=== PATIENT | female | born 1980 ===

== ENCOUNTER 2018-09-19 11:38 | Emergency (ER) | payer MEDICAID ==
[2018-09-19 11:39] VITALS: BMI 32.2
[2018-09-19] MEDS ORDERED: Sodium Chloride 0.9% 1,000 ML IV STA (11:56)
--- NOTE | 2018-09-19 12:09 | ED PDOC ---
Arrival/HPI - General Time Seen by Provider: 09/19/18 12:00 Historian: Patient - History of Present Illness Narrative History of Present Illness (Text): 09/19/18 12:01 37 y/o female, no significant pmh, nkda, c/o feeling room spinning sensation/headache/nausea at work today. Pt. feels like whole room spinning, feels nausea, admits headache, no chest pain or shortness of breath, no night sweat, no numbness or tingling, no palpitation, no rash, no other medical or psychological complaints. Past Medical History - Provider Review Nursing Documentation Reviewed: Yes - Psychiatric Hx Substance Use: No - Surgical History Hx Section: Yes (x2) - Anesthesia Hx Anesthesia: Yes Hx Anesthesia Reactions: No Hx Malignant Hyperthermia: No - Suicidal Assessment Feels Threatened In Home Enviroment: No Family/Social History - Physician Review Nursing Documentation Reviewed: Yes Family/Social History: Unknown Family HX Smoking Status: Never Smoked Hx Alcohol Use: No Hx Substance Use: No Allergies/Home Meds Allergies/Adverse Reactions: Allergies No Known Allergies Allergy (Verified 07/03/16 20:00) Review of Systems - Review of Systems Constitutional: absent: Fatigue, Fevers Eyes: absent: Vision Changes ENT: absent: Hearing Changes Respiratory: absent: SOB, Cough Cardiovascular: absent: Chest Pain Gastrointestinal: Nausea. absent: Abdominal Pain, Diarrhea, Vomiting Skin: absent: Rash, Pruritis Neurological: Headache, Dizziness Psychiatric: absent: Anxiety, Depression, Suicidal Ideation Physical Exam Vital Signs Reviewed: Yes Temperature: Afebrile Blood Pressure: Normal Pulse: Regular Respiratory Rate: Normal Appearance: Positive for: Well-Appearing, Non-Toxic, Comfortable Pain Distress: Moderate Mental Status: Positive for: Alert and Oriented X 3 - Systems Exam Head: Present: Atraumatic, Normocephalic Pupils: Present: PERRL Extroacular Muscles: Present: EOMI Conjunctiva: Present: Normal Ears: Present: NORMAL TM, Normal Canal. No: Erythema Mouth: Present: Moist Mucous Membranes Pharnyx: No: ERYTHEMA, EXUDATE, TONSILS ENLARGED Nose (External): Present: Atraumatic. No: Abrasion, Contusion, Laceration Nose (Internal): Present: Normal Inspection, No Active Bleeding. No: Rhinorrhea, Septal Hematoma, Epistaxis Neck: Present: Normal Range of Motion, Trachea Midline. No: Meningeal Signs, MIDLINE TENDERNESS, Lymphadenopathy Respiratory/Chest: Present: Clear to Auscultation, Good Air Exchange. No: Respiratory Distress, Accessory Muscle Use Cardiovascular: Present: Regular Rate and Rhythm, Normal S1, S2. No: Murmurs Abdomen: No: Tenderness, Distention, Peritoneal Signs, Rebound, Guarding Back: Present: Normal Inspection. No: CVA Tenderness, Midline Tenderness, Paraspinal Tenderness, Pain with Leg Raise, Decubitus Ulcer Upper Extremity: Present: Normal Inspection. No: Cyanosis, Edema Lower Extremity: Present: Normal Inspection. No: Edema Neurological: Present: GCS=15, CN II-XII Intact, Speech Normal, Motor Func Grossly Intact, Normal Cerebellar Funct, Gait Normal, Memory Normal, Other (normal finger to nose test, normal heel to mckeon test, no focal neurological deficits. ) Skin: Present: Warm, Dry, Normal Color. No: Rashes Psychiatric: Present: Alert, Oriented x 3, Normal Insight, Normal Concentration Medical Decision Making ED Course and Treatment: 09/19/18 12:12 -labs -ekg -ct head -cxr -ivf/reglan/meclizine -observe and reassess 09/19/18 14:43 -NIHSS is zero -Orthostatic v/s is negative. -EKG: NSR @ 92 BPM, no ST elevation or depression, no T wave inversion, chronic RBBB -CT head: No intracranial mass, hemorrhage or evidence of acute infarct. -Chest xray: No acute cardiopulmonary disease appreciated. -Labs show wbc 12.0 (afebrile) -UA show +UTI, rocephine IV ordered -Pt. feels completely relief now, no headache/dizziness, no nausea/vomiting. She is up, walking around independently with stable gait and posture. I discussed all labs/radiology results with her, she request to be discharged home. She negative kernig and brudzinski signs. -Discharge home with macrobid, meclizine, zofran, bed rest, stay hydrated, follow up with your own pmd and neurologist within 2 days, return to the ER for any new or worsening signs or symptoms. - RAD Interpretation Radiology Orders: 09/19/18 11:56 HEAD W/O CONTRAST [CT] Stat CHEST PORTABLE [RAD] Stat CHEST xray: Date of service: 09/19/2018 HISTORY: medical clearance COMPARISON: No prior. FINDINGS: LUNGS: No active pulmonary disease. PLEURA: No significant pleural effusion identified, no pneumothorax apparent. CARDIOVASCULAR: No aortic atherosclerotic calcification present. Normal cardiac size. No pulmonary vascular congestion. OSSEOUS STRUCTURES: No significant abnormalities. VISUALIZED UPPER ABDOMEN: Normal. OTHER FINDINGS: None. IMPRESSION: No acute cardiopulmonary disease appreciated. CT head: Date of service: 09/19/2018 PROCEDURE: CT HEAD WITHOUT CONTRAST. HISTORY: headache/dizziness COMPARISON: None available. TECHNIQUE: Axial computed tomography images were obtained through the head/brain without intravenous contrast. Radiation dose: Total exam DLP = 812.37 mGy-cm. This CT exam was performed using one or more of the following dose reduction techniques: Automated exposure control, adjustment of the mA and/or kV according to patient size, and/or use of iterative reconstruction technique. FINDINGS: HEMORRHAGE: No intracranial hemorrhage. BRAIN: No mass effect or edema. No atrophy or chronic microvascular ischemic changes. VENTRICLES: Unremarkable. No hydrocephalus. CALVARIUM: Unremarkable. PARANASAL SINUSES: Unremarkable as visualized. No significant inflammatory changes. MASTOID AIR CELLS: Unremarkable as visualized. No inflammatory changes. OTHER FINDINGS: None. IMPRESSION: No intracranial mass, hemorrhage or evidence of acute infarct. Product Accountant: Radiologist - EKG Interpretation EKG Interpretation (Text): 09/19/18 12:13 NSR @ 92 BPM, no ST elevation or depression, no T wave inversion, chronic RBBB Interpreted by ED Physician: Yes Type: 12 lead EKG Comparison: Com.w/previous EKG - Medication Orders Current Medication Orders: Sodium Chloride (Sodium Chloride 0.9%) 1,000 mls @ 999 mls/hr IV .Q1H1M STA Stop: 09/19/18 12:56 Meclizine HCl (Antivert) 50 mg PO STAT STA Stop: 09/19/18 11:57 Metoclopramide HCl (Reglan) 10 mg IVP STAT STA Stop: 09/19/18 12:00 - PA / HEPATOLOGY PHYSICIAN / Resident Statement / has reviewed & agrees with the documentation as recorded. Disposition/Present on Arrival - Present on Arrival Any Indicators Present on Arrival: No History of DVT/PE: No History of Uncontrolled Diabetes: No Urinary Catheter: No History of Decub. Ulcer: No - Disposition Have Diagnosis and Disposition been Completed?: Yes Diagnosis: UTI (urinary tract infection), Vertigo Disposition: HOME/ ROUTINE Disposition Time: 14:48 Patient Plan: Discharge Condition: IMPROVED Additional Instructions: -Discharge home with macrobid, meclizine, zofran, bed rest, stay hydrated, follow up with your own pmd and neurologist within 2 days, return to the ER for any new or worsening signs or symptoms. Prescriptions: Meclizine [Meclizine*] 25 mg PO Q6 #30 tab Nitrofurantoin Macrocrystals [Macrobid] 100 mg PO BID #14 cap Ondansetron [Zofran] 4 mg PO Q8H PRN #6 tab PRN Reason: Other Referrals: Filippo Castellanos MD [Staff Provider] - Follow up with primary [facility] [place] - Follow up with primary Forms: WORK NOTE
[2018-09-19 12:26] VITALS: RESP 18; TEMP 98.6
[2018-09-19 12:45] LABS: PH,URINE 6.5 (4.7-8.0); URINE BILIRUBIN NEGATIVE (NEGATIVE); URINE BLOOD NEGATIVE (NEGATIVE); URINE GLUCOSE (UA) NEGATIVE (NEGATIVE); URINE LEUKOCYTE ESTERASE TRACE Leu/uL (NEGATIVE); URINE PROTEIN 100 mg/dL (<30 mg/dL); URINE UROBILINOGEN 0.2 E.U./dL (<1 E.U./dL)
[2018-09-19 12:51] LABS: URINE APPEARANCE CLEAR (CLEAR); URINE COLOR YELLOW (YELLOW)
[2018-09-19 12:53] LABS: URINE BACTERIA MOD /hpf; URINE RBC 0 - 2 /hpf (0-2)
[2018-09-19 13:30] LABS: BASO # 0.03 K/mm3 (0.0-2.0); BASO % 0.2 % (0.0-3.0); EOS # 0.3 (0.0-0.7); EOS % 2.2 % (1.5-5.0); HEMOGLOBIN 15.3 g/dL (12.0-16.0); LYMPH # 1.7 (1.2-3.4); LYMPH % 14.4 % (22.0-35.0); MEAN CELL VOLUME 93.9 fl (80.0-105.0); MEAN CORPUSCULAR HEMOGLOBIN 31.1 pg (25.0-35.0); MEAN CORPUSCULAR HGB CONC 33.1 g/dl (31.0-37.0); MEAN PLATELET VOLUME 10.9 fl (7.0-11.0); MONO # 0.6 (0.1-0.6); MONO % 4.8 % (1.0-6.0); RBC 4.92 10^6/uL (3.5-6.1); RED CELL DISTRIBUTION WIDTH 13.3 % (11.5-14.5)
[2018-09-19 13:37] LABS: ALB/GLOB RATIO 1.2 (1.1-1.8); ALBUMIN 4.7 g/dL (3.0-4.8); BLOOD UREA NITROGEN 12 mg/dL (7-21); CALCIUM 9.5 mg/dL (8.4-10.5); GFR NON-AFRICAN AMERICAN > 60
[2018-09-19 13:42] LABS: ALT/SGPT 21 U/L (7-56); AST/SGOT 42 U/L (14-36)
--- NOTE | 2018-09-19 14:02 | CT ---
Date of service: 09/19/2018 PROCEDURE: CT HEAD WITHOUT CONTRAST. HISTORY: headache/dizziness COMPARISON: None available. TECHNIQUE: Axial computed tomography images were obtained through the head/brain without intravenous contrast. Radiation dose: Total exam DLP = 812.37 mGy-cm. This CT exam was performed using one or more of the following dose reduction techniques: Automated exposure control, adjustment of the mA and/or kV according to patient size, and/or use of iterative reconstruction technique. FINDINGS: HEMORRHAGE: No intracranial hemorrhage. BRAIN: No mass effect or edema. No atrophy or chronic microvascular ischemic changes. VENTRICLES: Unremarkable. No hydrocephalus. CALVARIUM: Unremarkable. PARANASAL SINUSES: Unremarkable as visualized. No significant inflammatory changes. MASTOID AIR CELLS: Unremarkable as visualized. No inflammatory changes. OTHER FINDINGS: None. IMPRESSION: No intracranial mass, hemorrhage or evidence of acute infarct.
--- NOTE | 2018-09-19 14:31 | RAD ---
Date of service: 09/19/2018 HISTORY: medical clearance COMPARISON: No prior. FINDINGS: LUNGS: No active pulmonary disease. PLEURA: No significant pleural effusion identified, no pneumothorax apparent. CARDIOVASCULAR: No aortic atherosclerotic calcification present. Normal cardiac size. No pulmonary vascular congestion. OSSEOUS STRUCTURES: No significant abnormalities. VISUALIZED UPPER ABDOMEN: Normal. OTHER FINDINGS: None. IMPRESSION: No acute cardiopulmonary disease appreciated.
[2018-09-19] MEDS ORDERED: cefTRIAXone 1 gm 1 GM/100 ML BAG IVPB STA (14:41)
[2018-09-19 14:46] VITALS: BP 109/70; PULSE 85; O2SAT 100
--- NOTE | 2018-09-19 17:52 | CARD ---
APPROVED REPORT Date of service: 09/19/2018 EKG Measurement Heart [id number] <Conclusion> Normal sinus rhythm Incomplete right bundle branch block Borderline ECG
== END 2018-09-19 15:52 | disposition home or self-care (01) ==
LOC: ED 11:38
DX: N39.0 Urinary tract infection, site not specified (principal); R42 Dizziness and giddiness
CPT/HCPCS: 70450; 71045; 80053; 81001; 81025; 83735; 85025; 87086; 93005; 96374; 99285; J0696; J7030